=== PATIENT | male | born 1985 | race Caucasian/White ===

== ENCOUNTER 2020-12-17 08:30 | Emergency (ER) | payer OTHER, SELFPAY ==
--- NOTE | 2020-12-17 08:30 | DI.RAD_ITS ---
Exam(s) XR SHOULDER LT COMPLETE 2+V EXAM: XR SHOULDER LT COMPLETE 2+V CLINICAL HISTORY: left shoulder pain, fall. TECHNIQUE: 2D digital imaging was performed. COMPARISON: No exams were available for comparison FINDINGS: There is nondisplaced fracture in the lateral 3rd of the clavicle. AC joint is not distracted. Donavan ohumeral joint appears unremarkable. No evidence of acromial nor scapular fracture. No ipsilateral rib fractures. No pneumothorax IMPRESSION: Nondisplaced clavicle fracture. DATA REPOSITORY: RADIATION DOSE DELIVERED:
[2020-12-17 08:34] VITALS: BP 135/81; PULSE 60; TEMP 36.5; O2SAT 100
--- NOTE | 2020-12-17 08:43 | W.ED.GENAD ---
Discharge Plan Disposition Patient Disposition: HOME Condition: Good Discharge Details Clinical Impression: Clavicle fracture Primary Care Provider: Tierra Tyler ED Provider: Loli Ruiz Home Meds and New Rx's Prescriptions: No Action ibuprofen 800 mg Tablet 800 mg PO TID PRNRF: 0 Discharge Instructions Instructions: Clavicle Fracture (ED) Additional Instructions: Use your sling Follow-up with orthopedics scheduled an appointment Ibuprofen 600 mg every 8 hours with food Tylenol 650 mg as needed for breakthrough pain Please return should you develop any new or worsening complaints Stand Alone Forms: Work Release Referrals: Douglas Trejo MD [ [facility] STAFF PHYSICIAN] - Medical Decision Making X-ray of left shoulder with laterally fracture, nondisplaced, no dislocation per my review and radiology interpretation Orthopedic referral, was not supplied Ibuprofen and Tylenol for pain control Return precautions discussed and patient expressed understanding and No additional evidence of trauma on exam HPI General Date/Time Provider Initiated Documentation: 12/17/20 08:33. Limitations to Documentation: no limitations. Information obtained by: patient. HPI Narrative: 35-year-old male presents with reports of left shoulder pain after fall last evening. He is under the influence of alcohol reportedly. He denies any head injury or any additional complaints. He he has pain with movement. He denies any strength or sensation change. He denies prior injuries to this shoulder in the past. He took ibuprofen this morning and is feeling improvement at this time reportedly. Related Data Home Medications Medication Instructions Recorded Confirmed ibuprofen 800 mg PO TID PRN 12/17/20 12/17/20 Allergies Allergy/AdvReac Type Severity Reaction Status Date / Time No Known Allergies Allergy Unverified 12/17/20 08:38 General Stated Complaint: Orthopedic BEN: 3 Review of Systems All systems reviewed & are unremarkable except as noted in HPI and below PFSH Social History Smoking/Tobacco Use Status: Current every day Tobacco Type: smokeless tobacco Smoking risk assessment performed?: Yes Alcohol Intake: current Alcohol Intake frequency: a few times a week Alcohol type: beer Drug use: Never Substance use type: does not use Do you feel safe at home: Yes Do you feel safe in your relationship?: Yes Exam Const General: cooperative Orientation: alert and oriented x3 Eyes Pupils: PERRL Neck Other: No midline tenderness Chest Other: No chest wall tenderness Extrem Other: Left shoulder tender and lateral clavicle tenderness, over AC joint, no obvious deformity, neurovascularly intact, no tenderness to elbow or crepitus to chest wall Course Vital Signs Vital signs: Vital Signs Temperature 36.5 C 12/17/20 08:34 Pulse 60 12/17/20 08:34 Blood Pressure 135/81 12/17/20 08:34 Pulse Oximetry 100 12/17/20 08:34 Temperature 36.5 C 12/17/20 08:34 Temperature Source Temporal Artery Scan 12/17/20 08:34 Pulse 60 12/17/20 08:34 Respiratory Effort Non-Labored 12/17/20 08:36 Blood Pressure 135/81 12/17/20 08:34 Blood Pressure Position Sitting 12/17/20 08:34 Pulse Oximetry 100 12/17/20 08:34 Oxygen Delivery Method Room Air 12/17/20 08:34 Oxygen Flow Rate 0 12/17/20 08:34 Pain Level 8 12/17/20 08:34
--- NOTE | 2020-12-17 08:45 | DI.RAD_ITS ---
Exam(s) XR CLAVICLE LT EXAM: XR CLAVICLE LT CLINICAL HISTORY: pain/fx. TECHNIQUE: 2D digital imaging was performed. COMPARISON: No exams were available for comparison FINDINGS: There is nondisplaced fracture in the lateral 3rd of the clavicle. AC joint is not distracted. Acro mion appears unremarkable as does the coracoid process. IMPRESSION: Clavicle fracture as described above, nondisplaced. DATA REPOSITORY: RADIATION DOSE DELIVERED:
== END 2020-12-17 09:40 | disposition home or self-care (01) ==
LOC: ER 09:40
PROVIDERS: Emergency Provider Physician Assistant; PCP Family Medicine
DX: S42.035A Nondisplaced fracture of lateral end of left clavicle, initial encounter for closed fracture (principal); W18.39XA Other fall on same level, initial encounter
CPT/HCPCS: 99284; 73000; 73030; 99283

== ENCOUNTER 2020-12-25 09:18 | Outpatient (CLI) | payer OTHER, SELFPAY ==
--- NOTE | 2020-12-25 08:00 | DI.RAD_ITS ---
Exam(s) XR CLAVICLE LT EXAM: XR CLAVICLE LT CLINICAL HISTORY: LEFT CLAVICLE FRACTURE TECHNIQUE: 2D digital imaging was performed. COMPARISON: CR XR CLAVICLE LT from 12/17/2020 FINDINGS: BONES: There has been no change in alignment of the distal left clavicle fracture. No bony destructi ve lesion is seen. JOINTS: No dislocation present. SOFT TISSUE: Normal. IMPRESSION: Stable left clavicular fracture. DATA REPOSITORY: RADIATION DOSE DELIVERED:
== END 2020-12-25 09:19 | disposition home or self-care (01) ==
LOC: DIORS 09:19
PROVIDERS: PCP Family Medicine; Referring Provider Family Medicine; Visit Provider Physician Assistant
DX: S42.002D Fracture of unspecified part of left clavicle, subsequent encounter for fracture with routine healing (principal); W19.XXXD Unspecified fall, subsequent encounter
CPT/HCPCS: 73000

== ENCOUNTER 2021-02-05 09:40 | Outpatient (CLI) | payer OTHER, SELFPAY ==
--- NOTE | 2021-02-05 08:00 | DI.RAD_ITS ---
Exam(s) XR CLAVICLE LT EXAM: XR CLAVICLE LT CLINICAL HISTORY: L clavicle fx. TECHNIQUE: 2D digital imaging was performed. COMPARISON: CR XR CLAVICLE LT from 12/25/2020 FINDINGS: Fracture lines in the lateral aspect of the left clavicle are again noted. No further displacement. Mild callus formation noted. AC joint is not distracted. IMPRESSION: DATA REPOSITORY: RADIATION DOSE DELIVERED:
== END 2021-02-05 09:41 | disposition home or self-care (01) ==
LOC: DIORS 09:41
PROVIDERS: PCP Family Medicine; Referring Provider Family Medicine; Visit Provider Physician Assistant
DX: S42.035D Nondisplaced fracture of lateral end of left clavicle, subsequent encounter for fracture with routine healing (principal)
CPT/HCPCS: 73000

== ENCOUNTER 2022-06-18 22:26 | Emergency (ER) | payer OTHER, SELFPAY ==
[2022-06-18] VITALS (15 sets, daily range): BP systolic 111–135; BP diastolic 58–85; PULSE 61–73; RESP 14–21
--- NOTE | 2022-06-18 22:15 | RT.EKG_ITS ---
APPROVED REPORT Exam: Resting ECG Reason for Exam: chest pain Patient Location: E HR:67 bpm ECG Measurements Heart Rate 67 AXIS TN 143 P 34 QRSd 102 QRS 69 QT 415 T 46 QTc 436 Conclusion Sinus rhythm...normal P axis, V-rate 60- 99 ST elev, probable normal early repol pattern...ST elevation, age<55 I have reviewed and interpreted ECG and agree with software generated interpretation.
--- NOTE | 2022-06-18 22:45 | DI.RAD_ITS ---
Exam(s) XR CHEST 2V PA LATERAL EXAM: XR CHEST 2V PA LATERAL CLINICAL HISTORY: chest pain TECHNIQUE: 2D digital imaging was performed of the chest. Two images were obtained. PA and lateral views were obtained. COMPARISON: No exams were available for comparison FINDINGS: MEDIASTINUM: Normal. HEART: Normal. PULMONARY VASCULATURE: Normal. LUNGS: Clear. PLEURAL SPACE: No pleural effusion or pneumothorax. BONE:Within normal limits for the patient's age. OTHER FINDINGS:Normal. IMPRESSION: No acute pulmonary findings. DATA REPOSITORY: RADIATION DOSE DELIVERED:
[2022-06-18 22:46] LABS: Abs Immature Grans 0.02 10^3/uL (0.0-0.06); Absolute Basophil Count 0.06 10^3/uL (0.0-0.2); Absolute Eosinophil Count 0.29 10^3/uL (0.0-0.7); Absolute Lymphocyte Count 2.85 10^3/uL (1.2-3.4); Absolute Monocyte Count 0.71 10^3/uL (0.1-0.8); Absolute Neutrophil Count 3.93 10^3/uL (1.2-6.7); Basophils % 0.8; Eosinophils % 3.7; HCT 43.6 % (40.0-50.0); Immature Grans % 0.3; Lymphocytes % 36.3; MCH 29.4 pg (27.0-33.0); MCHC 34.4 % (32.0-36.0); MCV 85 fL (80-95); MPV 10.8 fL (8.0-11.0); Neutrophils % 49.9; Platelet Count 232 10^3/uL (130-400); RBC 5.11 10^6/uL (4.36-5.78); RDW 12.5 % (11.8-14.1); WBC 7.86 10^3/uL (4.4-10.8)
[2022-06-18 23:05] LABS: ALT 51 U/L (16-63); Albumin 4.2 g/dL (3.4-5.0); Alkaline Phosphatase 81 U/L (46-116); Anion Gap 8.6 mmol/L (3-11); BUN 9 mg/dL (7-18); Bilirubin, Total 0.4 mg/dL (0.2-1.0); CO2 29.4 mmol/L (21.0-32.0); CREATININE 1.1 mg/dL (0.70-1.30); Calcium 8.8 mg/dL (8.5-10.1); Chloride 101 mmol/L (98-107); Estimated GFR 89.22 (mL/min/1.73m2); Glucose 103 mg/dL (74-106); Lipase 32 U/L (16-77); Potassium 3.5 mmol/L (3.5-5.1); Sodium 139 mmol/L (136-145); Total Protein 7.9 g/dL (6.4-8.2); Troponin I 55 ng/L (<or=60)
--- NOTE | 2022-06-18 23:05 | ED.GENADUL_ITS ---
Discharge Plan Disposition Patient Disposition: Home Condition: Stable Discharge Details Clinical Impression: Chest pain, Gastric irritation Primary Care Provider: Sg Gallegos ED Provider: Loli Ruiz Home Meds and New Rx's Prescriptions: New pantoprazole [Protonix] 40 mg tablet,delayed release (DR/EC) 40 mg PO DAILY Qty: 30 0RF Continued ibuprofen 800 mg Tablet 800 mg PO TID PRN Discharge Instructions Instructions: Chest Pain (ED) Additional Instructions: Follow-up with your doctor on Tuesday Watch your diet and stay away from fatty, spicy foods Recommend starting Protonix, this has been sent to your pharmacy Try to cut down on alcohol and chewing tobacco Return earlier with new or worsening complaints If you notice any worsening of your symptoms, or any new symptoms such as vomiting, diarrhea, fever, chills, shortness of breath, chest pain, numbness, weakness, or fainting , please return immediately to the emergency department for reevaluation. Please follow up with your primary care provider as soon as possible for reassessment and reevaluation. As always, it was a pleasure participating in your medical care today. Referrals: Sg Gallegos [Primary Care Provider] - 1 day Discharge Data Discharge Date/Time-TO BE ENTERED AT DEPARTURE: 06/19/22 01:27 Medical Decision Making <LORENZO Babcock - Last Filed: 06/20/22 08:33> Patient appears well, his pain is relieved Heart score of 1 Secondary to age and history, I will order 2 troponins EKG shows early repolarization without acute abnormality Pending chest x-ray, diagnostic once, patient is PERC negative and low suspicion for pulmonary embolism or other acute pathology cxr without acute abnormality per radiology interpretation and my review care transitioned to Dr Peters pending repeat troponin analysis 1:[address] Peters's documentation: Patient was signed out to me pending repeat troponin. Repeat troponin has returned is normal. Patient's symptoms are inconsistent with ACS, PE, or dissection. Patient's symptoms appear clinically consistent with mild alcoholic gastritis likely secondary to his alcohol intake and ibuprofen use. Will recommend avoidance of these things, taking Protonix, and appropriate dietary modifications. Discussed this with the patient and his significant other who is at bedside. I have extensively reviewed the treatment plan and discharge instructions with the patient and their family. I have addressed all patient concerns at this time. The patient and family was made aware of what symptoms to monitor for that would warrant a return to the emergency department. Discussed the plan with the patient and family, they demonstrate verbal understanding and agreement with our assessment and plan at this time. The documentation in this chart was dictated using [employer] dictation software. Please excuse any dictation errors. Medical Records Medical records reviewed: Yes I reviewed the patient's medical records. Lab Data Lab results reviewed: Yes I reviewed the patient's lab results. <Elvin Peters DO - Last Filed: 06/19/22 01:19> Patient appears well, his pain is relieved Heart score of 1 Secondary to age and history, I will order 2 troponins EKG shows early repolarization without acute abnormality Pending chest x-ray, diagnostic once, patient is PERC negative and low suspicion for pulmonary embolism 1:[address] Peters's documentation: Patient was signed out to me pending repeat troponin. Repeat troponin has returned is normal. Patient's symptoms are inconsistent with ACS, PE, or dissection. Patient's symptoms appear clinically consistent with mild alcoholic gastritis likely secondary to his alcohol intake and ibuprofen use. Will recommend avoidance of these things, taking Protonix, and appropriate dietary modifications. Discussed this with the patient and his significant other who is at bedside. I have extensively reviewed the treatment plan and discharge instructions with the patient and their family. I have addressed all patient concerns at this time. The patient and family was made aware of what symptoms to monitor for that would warrant a return to the emergency department. Discussed the plan with the patient and family, they demonstrate verbal understanding and agreement with our assessment and plan at this time. The documentation in this chart was dictated using [employer] dictation software. Please excuse any dictation errors. HPI <LORENZO Babcock - Last Filed: 06/20/22 08:33> General Date/Time Provider Initiated Documentation: 06/18/22 22:29 . HPI Narrative: This 77-year-old male presents with chest pain that started 45 minutes prior to arrival. He was sitting and watching TV when the pain began. He denies any known exacerbating or alleviating factors. He states he had steak and potatoes for dinner. He typically drinks 6 beers daily. He chews tobacco but denies smoking tobacco. Father does have a early history of stroke but not heart disease per patient. No history of coagulopathy. Denies any recent flights, surgeries, long drives or pleuritic pain. He states he took 2 tablets and Tylenol before coming in the pain actually is alleviated approximately 20 minutes ago. He denies any calf pain or swelling. Related Data Home Medications Medication Instructions Recorded Confirmed ibuprofen 800 mg tablet 800 mg PO TID PRN 12/17/20 06/18/22 pantoprazole 40 mg tablet,delayed 40 mg PO DAILY #30 tabs 06/19/22 release (Protonix) Previous Rx's Medication Instructions Recorded pantoprazole 40 mg tablet,delayed 40 mg PO DAILY #30 tabs 06/19/22 release (Protonix) Allergies Allergy/AdvReac Type Severity Reaction Status Date / Time No Known Allergies Allergy Unverified 12/25/20 07:58 General Stated Complaint: Chest Pain BEN: 2 PFSH <LORENZO Babcock - Last Filed: 06/20/22 08:33> All Active Problems (Updated 06/19/22 @ 01:14 by Elvin Peters DO) Chest pain (Acute) Gastric irritation (Acute) Closed left clavicular fracture (Acute 12/15/20) Medical History Biceps tendinitis of right shoulder (04/12/16) Incomplete tear of right rotator cuff (04/12/16) Social History Smoking/Tobacco Use Status: Current every day Tobacco Type: smokeless tobacco Smoking risk assessment performed?: Yes Alcohol Intake: current Alcohol Intake frequency: 0-2 drinks per day Alcohol type: beer Drug use: Never Substance use type: does not use Do you feel safe at home: Yes Do you feel safe in your relationship?: Yes Exam <LORENZO Babcock - Last Filed: 06/20/22 08:33> Const General: cooperative, comfortable and no acute distress HENMT Head: normal to inspection Resp Effort & Inspection: normal respiratory effort Auscultation: clear to auscultation bilaterally Cardio Rate: regular rate Rhythm: regular rhythm GI Inspection: normal to inspection Other: No reproducible tenderness Skin General skin exam: no rashes or lesions noted Neuro General: patient alert and patient oriented x3 Course <LORENZO Babcock - Last Filed: 06/20/22 08:33> Vital Signs Vital signs: Vital Signs Respiratory Rate 16 06/18/22 22:36 Respiratory Rate 16 06/18/22 22:36 Respiratory Effort 06/18/22 22:36 Respiratory Depth Normal 06/18/22 22:36 Respiratory Pattern Normal 06/18/22 22:36 Pain Level 5 06/18/22 22:36 Lab/Test Results Lab/Test Results: Laboratory Tests Range/Units 06/18/22 22:40 WBC (4.4-10.8) 10^3/uL 7.86 RBC (4.36-5.78) 10^6/uL 5.11 Hgb (13.5-17.5) g/dL 15.0 Hct (40.0-50.0) % 43.6 MCV (80-95) fL 85 MCH (27.0-33.0) pg 29.4 MCHC (32.0-36.0) % 34.4 RDW (11.8-14.1) % 12.5 Plt Count (130-400) 10^3/uL 232 MPV (8.0-11.0) fL 10.8 Immature Gran % 0.3 Neutrophils % 49.9 Lymphocytes % 36.3 Monocytes % 9.0 Eosinophils % 3.7 Basophils % 0.8 Nucleated RBC % (0.0-0.3) % 0.0 Absolute Neutrophils (1.2-6.7) 10^3/uL 3.93 Absolute Lymphocytes (1.2-3.4) 10^3/uL 2.85 Absolute Monocytes (0.1-0.8) 10^3/uL 0.71 Absolute Eosinophils (0.0-0.7) 10^3/uL 0.29 Absolute Basophils (0.0-0.2) 10^3/uL 0.06
--- NOTE | 2022-06-18 23:13 | DI.VRAD_ITS ---
PROCEDURE INFORMATION: Exam: XR Chest Exam date and time: 06/18/2022 23:05 Age: 37 years old Clinical indication: Other: Chest pain TECHNIQUE: Imaging protocol: Radiologic exam of the chest. Views: 2 views. COMPARISON: CR XR CLAVICLE LT 02/05/2021 08:19 FINDINGS: Lungs: No consolidation. Pleural spaces: No pleural effusion. No pneumothorax. Heart/Mediastinum: No cardiomegaly. Diaphragm: Elevated right hemidiaphragm. Bones/joints: No acute fracture. IMPRESSION: No acute cardiopulmonary pathology. Dictated and Authenticated by: Jennifer Perez MD. Ordering:TRISTEN Ennis MD
[2022-06-18 23:20] LABS: AST 48 U/L (15-37)
[2022-06-19 00:50] LABS: Troponin I 53 ng/L (<or=60)
[2022-06-19 01:24] VITALS: BP 119/81; PULSE 60; RESP 18
== END 2022-06-19 01:27 | disposition home or self-care (01) ==
PROVIDERS: Emergency Provider Physician Assistant; PCP Family Medicine
DX: K31.89 Other diseases of stomach and duodenum (principal); R07.9 Chest pain, unspecified
CPT/HCPCS: 80053; 83690; 93005; 99284; 71046; 84484; 85025; 93010

== ENCOUNTER 2023-06-21 15:03 | Outpatient (REF) | payer OTHER, SELFPAY ==
[2023-06-21 21:21] LABS: ALT 30 U/L (16-63); AST 21 U/L (15-37); Albumin 4.3 g/dL (3.4-5.0); Alkaline Phosphatase 71 U/L (46-116); BUN 6 mg/dL (7-18); Bilirubin, Total 0.4 mg/dL (0.2-1.0); CREATININE 0.9 mg/dL (0.70-1.30); Calcium 9.3 mg/dL (8.5-10.1); Chloride 103 mmol/L (98-107); Estimated GFR 112.81 (mL/min/1.73m2); Glucose 88 mg/dL (74-106); Potassium 3.7 mmol/L (3.5-5.1); Sodium 140 mmol/L (136-145); Total Protein 7.9 g/dL (6.4-8.2)
[2023-06-22 19:27] LABS: HIV-1/2 Ag & Ab Screen Negative (Negative)
[2023-06-22 19:33] LABS: Hepatitis A Antibody IgM Negative (Negative); Hepatitis B Core Antibody Negative (Negative); Hepatitis B surface Ag Negative (Negative); Hepatitis C Ab w Rflx HCV PCR Negative (Negative)
== END 2023-06-21 15:04 | disposition home or self-care (01) ==
LOC: NCHCN 15:03
PROVIDERS: PCP Family Medicine; Visit Provider Student in an Organized Health Care Education/Training Program
DX: R21 Rash and other nonspecific skin eruption (principal); Z11.4 Encounter for screening for human immunodeficiency virus [HIV]
CPT/HCPCS: 80053; 86704; 86709; 86803; 87340; 87389

== ENCOUNTER 2024-03-06 17:48 | Emergency (ER) | payer OTHER, SELFPAY ==
[2024-03-06 17:52] VITALS: BP 134/89; PULSE 58; RESP 18; TEMP 36.2; O2SAT 58
--- NOTE | 2024-03-06 18:49 | DI.CT_ITS ---
Exam(s) CT FACIAL WO EXAM: CT FACIAL WO CLINICAL HISTORY: FACE TRAUMA. TECHNIQUE: Imaging Protocol: Axial computed tomography images with coronal and sagittal reformatted images were created and reviewed COMPARISON: No exams were available for comparison FINDINGS: CT Face: Facial Bones: There are mildly comminuted and mildly depressed bilateral nasal bone fractures. The nasal septum deviates to the left. The turbinates and ostiomeatal complexes are unremarkable. Sinuses and Mastoids: Unremarkable. Globes, extraocular muscles, optic nerves and retrobulbar fat: Normal. Upper aerodigestive tract: Normal. Mandible and bilateral temporomandibular joints: Normal. Soft tissues: Mild soft tissue swelling over the bridge of the nose. IMPRESSION: Bilateral mildly comminuted and depressed nasal bone fractures. RADIATION DOSE DELIVERED: 791.92mGy.cm Total DLP 791.92mGy.cm Total DLP DATA REPOSITORY: All CT scans at this facility are submitted to the National Radiology Data Registry (NRDR) Dose Index Registry (DIR) with the [employer] (A[employer]). RADIATION OPTIMIZATION: All CT scans at this facility use at least one of these dose optimization te chniques: automated exposure control; mA and/or kV adjustment per patient size (includes targeted exa ms where dose is matched to clinical indication); or iterative reconstruction.
[2024-03-06 19:06] VITALS: O2SAT 94
[2024-03-06] MEDS: Oxymetazolone 0.05% SPRAY 15 ML BTL NS (19:46)
--- NOTE | 2024-03-06 21:40 | ED.GENADUL_ITS ---
Discharge Plan Disposition Patient Disposition: Home Condition: Stable Discharge Details Clinical Impression: Closed fracture nasal bone Primary Care Provider: Sg Gallegos ED Provider: Franko Jones Home Meds and New Rx's Prescriptions: No Action ibuprofen 800 mg Tablet 800 mg PO TID PRN pantoprazole [Protonix] 40 mg tablet,delayed release (DR/EC) 40 mg PO DAILY Qty: 30 0RF Discharge Instructions Instructions: Nose Fracture ED Additional Instructions: * Use Afrin 2 squeezes in each nostril twice daily for the next 3 days, do not use for longer than this * Apply ice pack to help with swelling and bruising * Can take Motrin or Tylenol as needed for pain * You been referred to plastic surgery at [facility] for follow-up and surgical management HPI General Date/Time Provider Initiated Documentation: 03/06/24 18:20 . Limitations to Documentation: no limitations . Information obtained by: patient . HPI Narrative: 39-year-old gentleman without significant past medical history presents for evaluation of acute traumatic nose injury. 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 He reports acute onset of pain to the nose. He says that his nose was bleeding but it stopped with some pressure. He denies any loss of consciousness. He denies any at this time. Reports pain to his nose, some difficulty breathing. Related Data Home Medications ?Medication ?Instructions ?Recorded ?Confirmed ibuprofen 800 mg tablet 800 mg PO TID PRN 12/17/20 03/06/24 pantoprazole 40 mg tablet,delayed 40 mg PO DAILY #30 tabs 06/19/22 03/06/24 release (Protonix) Previous Rx's ?Medication ?Instructions ?Recorded pantoprazole 40 mg tablet,delayed 40 mg PO DAILY #30 tabs 06/19/22 release (Protonix) Allergies Allergy/AdvReac Type Severity Reaction Status Date / Time No Known Allergies Allergy Unverified 03/06/24 17:55 General Stated Complaint: Orthopedic BEN: 4 Exam Narrative Exam Narrative: Review of Systems: All systems reviewed & are unremarkable except as noted in HPI and below Well-developed, no acute distress Obvious nasal deformity, no nasal septal hematoma, dried blood noted, noted to have air movement in each dependent nare No facial instability, no malocclusion PERRL, normal conjunctiva RRR Unlabored respiratory effort Course Vital Signs Vital signs: Vital Signs Temperature 36.2 C L 03/06/24 17:52 Pulse 58 L 03/06/24 17:52 Respiratory Rate 18 03/06/24 17:52 Blood Pressure 134/89 03/06/24 17:52 Pulse Oximetry 58 L 03/06/24 17:52 Temperature 36.2 C L 03/06/24 17:52 Temperature Source Temporal Artery Scan 03/06/24 17:52 Pulse 58 L 03/06/24 17:52 Respiratory Rate 18 03/06/24 17:52 Respiratory Effort Normal 03/06/24 17:55 Blood Pressure 134/89 03/06/24 17:52 Blood Pressure Position Sitting 03/06/24 17:52 Pulse Oximetry 94 03/06/24 19:06 Oxygen Delivery Method Room Air 03/06/24 19:06 Oxygen Flow Rate 0 03/06/24 19:06 Medical Decision Making Emergent evaluation of acute facial trauma. The patient has set up deformity to his nose. CT imaging of the face was obtained and a comminuted nasal fracture is noted on this imaging. The images were pushed to [facility]. And the patient will be referred to plastic surgery for operative repair of his nasal fracture. He is moving air bilaterally. He was provided with Afrin and supportive care instructions. Return precautions advised. Follow-up with surgery for definitive management. Quality:SDOH Health Related Social Needs: No Data to Display PFSH All Active Problems Closed fracture nasal bone (Acute) Closed left clavicular fracture (Acute 12/15/20) Medical History Biceps tendinitis of right shoulder (04/12/16) Incomplete tear of right rotator cuff (04/12/16) Social History Smoking/Tobacco Use Status: Current every day Tobacco Type: smokeless tobacco Smoking risk assessment performed?: Yes Alcohol Intake: current Alcohol Intake frequency: 0-2 drinks per day Alcohol type: beer Drug use: Never Substance use type: does not use Do you feel safe at home: Yes Do you feel safe in your relationship?: Yes PAWSS Have you Been Recently Intoxicated or Drunk Within the Last 30 days?: No Have you Ever Experienced Previous Episodes of Alcohol Withdrawal?: No Have you ever Experienced Withdrawal Seizures?: No Have you ever Experienced Delirium Tremens(DT)s?: No Have you ever undergone Alcohol Rehabilitation Treatment (i.e, inpt ot outpatient treatment programs)?: No Have you ever Experienced Blackouts?: No Have you ever Combined Alcohol with other Downers within the last 90 days?: No Have you ever Combined Alcohol with any other Substance of Abuse during the last 90 days?: No Positive Blood Alcohol level on Presentation? [PCS.BAL]: No Evidence of Increased Autonomic Activity (i.e. HR>120, tremor, sweating, agitation, nausea)?: No Result: 0
== END 2024-03-06 19:50 | disposition home or self-care (01) ==
PROVIDERS: Emergency Provider Emergency Medicine; PCP Family Medicine
DX: S02.2XXA Fracture of nasal bones, initial encounter for closed fracture (principal); W50.0XXA Accidental hit or strike by another person, initial encounter; Y93.61 Activity, american tackle football; Y92.321 Football field as the place of occurrence of the external cause
CPT/HCPCS: 99284; 70486; 99283